=== PATIENT | female | born 1960 | race Caucasian/White ===

== ENCOUNTER 2018-12-30 19:21 | Emergency (ER) | payer MEDICARE ==
[~2018-12-30] VITALS: Ht 160 cm; Wt 55.0 kg
[2018-12-30] MEDS ORDERED: AUGMENTIN875TAB PO (20:48)
[2018-12-30 20:55] VITALS: BP 139/74
== END 2018-12-30 20:55 | disposition home or self-care (01) ==
LOC: ED 19:21
PROC: 0HQDXZZ Repair Right Lower Arm Skin, External Approach (ICD-10-PCS; principal; 2018-12-30)
DX: S51.051A Open bite, right elbow, initial encounter (principal); F17.200 Nicotine dependence, unspecified, uncomplicated; W54.0XXA Bitten by dog, initial encounter; Y93.89 Activity, other specified; Y92.007 Garden or yard of unspecified non-institutional (private) residence as the place of occurrence of the external cause; Y99.9 Unspecified external cause status

== ENCOUNTER 2019-01-02 08:53 | Emergency (ER) | payer MEDICARE ==
[~2019-01-02] VITALS: Ht 160 cm; Wt 55.0 kg
[~2019-01-02 08:53] MED LIST: AUGMENTIN875TAB PO
[2019-01-02] MEDS ORDERED: XANAX0.25 MG PO (09:07)
[2019-01-02] MEDS ORDERED: FLEXERIL PO (10:22)
[2019-01-02] MEDS ORDERED: ULTRAM50 MG PO (10:22)
[2019-01-02 10:33] VITALS: BP 157/94
== END 2019-01-02 10:34 | disposition home or self-care (01) ==
LOC: ED 08:53
DX: S10.93XA Contusion of unspecified part of neck, initial encounter (principal); S50.02XA Contusion of left elbow, initial encounter; S50.01XA Contusion of right elbow, initial encounter; S40.011A Contusion of right shoulder, initial encounter; S30.0XXA Contusion of lower back and pelvis, initial encounter; S16.1XXA Strain of muscle, fascia and tendon at neck level, initial encounter; S39.012A Strain of muscle, fascia and tendon of lower back, initial encounter; W54.0XXD Bitten by dog, subsequent encounter; W18.30XD Fall on same level, unspecified, subsequent encounter; Y92.009 Unspecified place in unspecified non-institutional (private) residence as the place of occurrence of the external cause

== ENCOUNTER 2019-01-09 15:56 | Emergency (ER) | payer MEDICARE ==
[~2019-01-09] VITALS: Ht 160 cm; Wt 70.0 kg
[~2019-01-09 15:56] MED LIST changes: +FLEXERIL PO; +ULTRAM50 MG PO; +XANAX0.25 MG PO
[2019-01-09 16:40] VITALS: BP 132/76
== END 2019-01-09 16:40 | disposition home or self-care (01) ==
LOC: ED 15:56
DX: S51.051D Open bite, right elbow, subsequent encounter (principal); W54.0XXD Bitten by dog, subsequent encounter

== ENCOUNTER 2019-01-17 14:17 | Emergency (ER) | payer MEDICARE ==
[~2019-01-17] VITALS: Ht 160 cm; Wt 52.0 kg
[2019-01-17] MEDS ORDERED: CEPHALEXIN500 M1 PO (18:19)
[2019-01-17] MEDS ORDERED: CYCLOBENZAPR5 MG PO (18:19)
[2019-01-17] MEDS ORDERED: BACTRIM DS1 TAB PO (18:19)
[2019-01-17 18:55] VITALS: BP 135/72
== END 2019-01-17 18:55 | disposition home or self-care (01) ==
LOC: ED 14:17
PROC: 0H9BXZZ Drainage of Right Upper Arm Skin, External Approach (ICD-10-PCS; principal; 2019-01-17)
DX: S51.051D Open bite, right elbow, subsequent encounter (principal); L02.413 Cutaneous abscess of right upper limb; W54.0XXD Bitten by dog, subsequent encounter

== ENCOUNTER 2020-10-02 08:27 | Emergency (ER) | payer MEDICARE ==
[~2020-10-02] VITALS: Ht 160 cm; Wt 54.5 kg
[~2020-10-02 08:27] MED LIST changes: +BACTRIM DS1 TAB PO; +CEPHALEXIN500 M1 PO; +CYCLOBENZAPR5 MG PO
[2020-10-02 08:46] LABS: URINE BILIRUBIN - DIPSTICK NEGATIVE (NEGATIVE); URINE BLOOD DIPSTICK LARGE (NEGATIVE); URINE COLOR YELLOW; URINE GLUCOSE - DIPSTICK NEGATIVE (NEGATIVE); URINE KETONE NEGATIVE (NEGATIVE); URINE PH 6.5 (4.5-8.0); URINE PROTEIN - DIPSTICK 30 mg/dL (NEG-TRACE); URINE SPECIFIC GRAVITY 1.025; URINE UROBILINOGEN - DIPSTICK 0.2 E.U./dL (0.2)
[2020-10-02] MEDS ORDERED: PERCOCET 10/31 COMBO PO (08:57)
[2020-10-02 09:03] LABS: URINE LEUK ESTERASE SMALL (NEGATIVE); URINE NITRITE - DIPSTICK POSITIVE (Negative)
[2020-10-02 09:04] LABS: URINE BACTERIA MODERATE hpf; URINE EPITHELIAL CELLS MODERATE EPI/hpf (0-FEW)
[2020-10-02] MEDS ORDERED: NITROFURANTN100 M2 PO (09:11)
[2020-10-02 09:22] VITALS: BP 162/80
== END 2020-10-02 09:22 | disposition home or self-care (01) ==
LOC: ED 08:27
PROVIDERS: Family Medicine
DX: N39.0 Urinary tract infection, site not specified (principal); F17.200 Nicotine dependence, unspecified, uncomplicated